=== PATIENT | female | born 1995 | race Caucasian/White ===

== ENCOUNTER 2017-09-28 03:46 | Emergency (ER) | payer BC, OTHER ==
[~2017-09-28 03:46] MED LIST: CLON0.5T PO; CYCL-36 PO; IBUP800 PO; MONT10TA2 PO; Z.0.BCPILL PO
--- NOTE | 2017-09-28 05:36 | PD ---
HPI Chief Complaint fall Date Seen: Sep 28, 2017 Time Seen: 05:31 Travel History International Travel<30 Days: No Contact w/Intl Traveler<30Days: No Known Affected Area: No History of Present Illness HPI pt. is a 22 y/o @25 3/7 weeks present s/p fall. pt. states was walking thru house in dark and tripped over the dog. pt. states she fell on her right buttock. pt. states she is sore on that side now. +FM , no lof/vb, no cramping. Weeks Gestation: 25 Para: 0 : 1 History Past Medical History Medical History: Denies Significant Hx Past Surgical History Surgical History: No Previous Surgery Family History Family History: Negative Social History Alcohol Use: No Tobacco Use: No Substance Abuse: No Allergies-Medications (Allergen,Severity, Reaction): Coded Allergies: levofloxacin (Unverified Allergy, Severe, DIZZINESS, 03/14/17) amoxicillin (Unverified Allergy, Mild, HIVES, 03/14/17) clavulanic acid (Unverified Allergy, Mild, HIVES, 03/14/17) cefprozil (Unverified Allergy, Unknown, 03/14/17) Home Meds Active Scripts Cyclobenzaprine Hcl (Flexeril) 10 Mg Tab, 10 MG PO TID Y for MUSCLE SPASM, #30 TAB Prov:Dory Puri 02/24/16 Ibuprofen (Motrin 800 Mg Tab) 800 Mg Tab, 800 MG PO Q8HR Y for PAIN SCALE 1 TO 10 for 14 Days, TAB Prov:Dory Puri 02/24/16 Reported Medications Miscellaneous ( Control Pills) Tab, 1 TAB PO DAILY, TAB 02/24/16 Montelukast Sodium (Singulair) 10 Mg Tab, 10 MG PO HS, TAB 06/23/15 Clonazepam (Clonazepam) 0.5 Mg Tab, 0.25 MG PO DAILY, TAB 06/23/15 Review of Systems Except as stated in HPI: all other systems reviewed are Neg Physical Exam Narrative GENERAL: Well-nourished, well-developed patient. SKIN: Warm and dry. HEAD: Normocephalic and atraumatic. EYES: No scleral icterus. No injection or drainage. ENT: No nasal drainage noted. Mucous membranes pink. Airway patent. NECK: Supple, trachea midline. No JVD. CARDIOVASCULAR: Regular rate and rhythm without murmurs, gallops, or rubs. RESPIRATORY: Breath sounds equal bilaterally. No accessory muscle use. ABDOMEN/GI: Abdomen soft, non-tender, bowel sounds present, no rebound, no guarding Gravid EXTREMITIES: No cyanosis or edema. BACK: Nontender without obvious deformity. right hip and buttock tenderness. NEUROLOGICAL: Awake and alert. Motor and sensory grossly within normal limits. Five out of 5 muscle strength in all muscle groups. Normal speech. FHT: +, reactive. Data Data Vital Signs Reviewed: Yes [facility] Medical Record Reviewed: Yes Plan pt. to be d/c to home. fall d/w pt. pt. given precautions for return. Pt. to see dr. duron as sched. all ? answered. Disposition: 01 DISCHARGE HOME Eduard Caballero Jr., MD Sep 28, 2017 05:36
--- NOTE | 2017-09-28 05:52 | PD ---
HPI Travel History International Travel<30 Days: No Contact w/Intl Traveler<30Days: No Known Affected Area: No History of Present Illness HPI pt. is a 22 y/o @25 3/7 weeks present s/p fall. pt. states was walking thru house in dark and tripped over the dog. pt. states she fell on her right buttock. pt. states she is sore on that side now. +FM , no lof/vb, no cramping. Allergies-Medications (Allergen,Severity, Reaction): Coded Allergies: levofloxacin (Unverified Allergy, Severe, DIZZINESS, 03/14/17) amoxicillin (Unverified Allergy, Mild, HIVES, 03/14/17) clavulanic acid (Unverified Allergy, Mild, HIVES, 03/14/17) cefprozil (Unverified Allergy, Unknown, 03/14/17) Home Meds Active Scripts Cyclobenzaprine Hcl (Flexeril) 10 Mg Tab, 10 MG PO TID Y for MUSCLE SPASM, #30 TAB Prov:Dory Puri 02/24/16 Ibuprofen (Motrin 800 Mg Tab) 800 Mg Tab, 800 MG PO Q8HR Y for PAIN SCALE 1 TO 10 for 14 Days, TAB Prov:Dory Puri 02/24/16 Reported Medications Miscellaneous ( Control Pills) Tab, 1 TAB PO DAILY, TAB 02/24/16 Montelukast Sodium (Singulair) 10 Mg Tab, 10 MG PO HS, TAB 06/23/15 Clonazepam (Clonazepam) 0.5 Mg Tab, 0.25 MG PO DAILY, TAB 06/23/15 Physical Exam Narrative GENERAL: Well-nourished, well-developed patient. SKIN: Warm and dry. HEAD: Normocephalic and atraumatic. EYES: No scleral icterus. No injection or drainage. ENT: No nasal drainage noted. Mucous membranes pink. Airway patent. NECK: Supple, trachea midline. No JVD. CARDIOVASCULAR: Regular rate and rhythm without murmurs, gallops, or rubs. RESPIRATORY: Breath sounds equal bilaterally. No accessory muscle use. BREASTS: Bilateral exam showed no masses , no retractions, no nipple discharge. ABDOMEN/GI: Abdomen soft, non-tender, bowel sounds present, no rebound, no guarding Gravid to [-] weeks size Fundal Height: [-] GENITOURINARY: External Genitalia: intact and normal in appearance BUS glands: [-] Cervix: [-] Dilatation: [-] Effacement: [-] Station: [-] Presentation: [-] Membranes: [intact or ruptured] Uterine Contractions: [-] FHT's: Category: [-] Baseline: [-] Reactive: [-] Variability: [-] Decels: [-] EXTREMITIES: No cyanosis or edema. BACK: Nontender without obvious deformity. No CVA tenderness. NEUROLOGICAL: Awake and alert. Motor and sensory grossly within normal limits. Five out of 5 muscle strength in all muscle groups. Normal speech. MDM Diagnosis Diagnosis: Primary Impression: Fall Additional Impression: 25 weeks gestation of Disposition: 01 DISCHARGE HOME Condition: Stable Patient Instructions: General Instructions, Movement (ED), Abdominal Pain in (ED) Additional Instructions: DRINK PLENTY OF WATER DURING THE DAY, RETURN IF LEAKING FLUID, VAGINAL BLEEDING , STRONG CONTRACTIONS AND DECREASE IN MOVEMENT. FOLLOW UP WITH OB DR IN AM AND KEEP ALL UPCOMING OB APPTS. Departure Forms: Tests/Procedures Eduard Caballero Jr., MD Sep 28, 2017 05:52
== END 2017-09-28 06:20 | disposition home or self-care (01) ==
LOC: HOBED 03:46
DX: O9A.212 Injury, poisoning and certain other consequences of external causes complicating pregnancy, second trimester (principal); W01.0XXA Fall on same level from slipping, tripping and stumbling without subsequent striking against object, initial encounter; Y93.01 Activity, walking, marching and hiking; Y92.009 Unspecified place in unspecified non-institutional (private) residence as the place of occurrence of the external cause; Z3A.25 25 weeks gestation of pregnancy
CPT/HCPCS: 99283

== ENCOUNTER 2017-12-21 14:52 | Emergency (ER) | payer BC ==
[2017-12-21] MEDS ORDERED: ONDANSETRON ODT 4 MG TAB PO PRN (15:30)
[2017-12-21] MEDS ORDERED: LACTATED RINGER'S 1000 ML INJ 1,000 ML IV SCH (16:00)
[2017-12-21] MEDS ORDERED: SODIUM CHLORID 0.9% 500 ML INJ 500 ML IV ONE (16:00)
[2017-12-21 16:10] LABS: AUTOMATED NEUTROPHIL # 9.6 TH/MM3 (1.8-7.7); BASOPHIL % 0.2 % (0.0-2.0); EOSINOPHIL % 0.3 % (0.0-4.0); HEMATOCRIT 37.7 % (35.0-46.0); HEMOGLOBIN 12.4 GM/DL (11.6-15.3); LYMPH % 11.5 % (9.0-44.0); LYMPHOCYTE # 1.3 TH/MM3 (1.0-4.8); MEAN CELL VOLUME 83.2 FL (80.0-100.0); MEAN CORPUSCULAR HEMOGLOBIN 27.4 PG (27.0-34.0); MEAN CORPUSCULAR HGB CONC 32.9 % (32.0-36.0); MEAN PLATELET VOLUME 9.7 FL (7.0-11.0); MONO % 5.6 % (0.0-8.0); MONOCYTE # 0.7 TH/MM3 (0-0.9); NEUT % 82.4 % (16.0-70.0); PLATELET COUNT 181 TH/MM3 (150-450); RED BLOOD COUNT 4.53 MIL/MM3 (4.00-5.30); RED CELL DISTRIBUTION WIDTH 15.9 % (11.6-17.2); WHITE BLOOD COUNT 11.7 TH/MM3 (4.0-11.0)
[2017-12-21 16:23] LABS: BICARBONATE 23.5 MEQ/L (21.0-32.0); CALCIUM 8.4 MG/DL (8.5-10.1); CREATININE 0.53 MG/DL (0.50-1.00)
[2017-12-21 16:31] LABS: BACTERIA, URINE RARE /hpf; BILIRUBIN, URINE NEG (NEG); BLOOD, URINE NEG (NEG); GLUCOSE,URINE NEG (NEG); HYALINE CAST, URINE 2 /lpf (RARE); KETONE, URINE NEG (NEG); MUCUS URINE FEW /lpf (OCC); NITRITE,URINE NEG (NEG); PH, URINE 7.5 (5.0-8.5); SQUAMOUS EPITHELIAL CELL URINE 2 /hpf (0-5); URINE COLOR YELLOW (YELLW/STRAW); URINE LEUKOCYTE ESTERASE NEG (NEG)
--- NOTE | 2017-12-21 17:20 | PD ---
HPI Chief Complaint nausea, malaise Date Seen: December 21, 2017 Time Seen: 16:55 Travel History International Travel<30 Days: No Contact w/Intl Traveler<30Days: No Known Affected Area: No History of Present Illness HPI pt. is a 22 y/o @ 37 4/[address] duron present w/ c/o nausea and malaise. pt. states had baby shower yesterday, and had multiple sick contacts. pt. states this am began having nausea and malaise and not able to florin po. pt. states no fever. +FM, no lof/vb, irreg ctxs. pt. states reg bm. Weeks Gestation: 37 Para: 0 : 1 History Past Medical History Medical History: Denies Significant Hx Obstetric History Obstetric History Past Surgical History Surgical History: No Previous Surgery Family History Family History: Negative Social History Alcohol Use: No Tobacco Use: No Substance Abuse: No Allergies-Medications (Allergen,Severity, Reaction): Coded Allergies: levofloxacin (Unverified Allergy, Severe, DIZZINESS, 03/14/17) amoxicillin (Unverified Allergy, Mild, HIVES, 03/14/17) clavulanic acid (Unverified Allergy, Mild, HIVES, 03/14/17) cefprozil (Unverified Allergy, Unknown, 03/14/17) Home Meds Active Scripts Cyclobenzaprine Hcl (Flexeril) 10 Mg Tab, 10 MG PO TID Y for MUSCLE SPASM, #30 TAB Prov:Dory Puri 02/24/16 Ibuprofen (Motrin 800 Mg Tab) 800 Mg Tab, 800 MG PO Q8HR Y for PAIN SCALE 1 TO 10 for 14 Days, TAB Prov:Dory Puri 02/24/16 Reported Medications Miscellaneous ( Control Pills) Tab, 1 TAB PO DAILY, TAB 02/24/16 Montelukast Sodium (Singulair) 10 Mg Tab, 10 MG PO HS, TAB 06/23/15 Clonazepam (Clonazepam) 0.5 Mg Tab, 0.25 MG PO DAILY, TAB 06/23/15 Review of Systems Except as stated in HPI: all other systems reviewed are Neg Physical Exam Narrative GENERAL: Well-nourished, well-developed patient. SKIN: Warm and dry. HEAD: Normocephalic and atraumatic. EYES: No scleral icterus. No injection or drainage. ENT: No nasal drainage noted. Mucous membranes pink. Airway patent. NECK: Supple, trachea midline. No JVD. CARDIOVASCULAR: Regular rate and rhythm without murmurs, gallops, or rubs. RESPIRATORY: Breath sounds equal bilaterally. No accessory muscle use. ABDOMEN/GI: Abdomen soft, non-tender, bowel sounds present, no rebound, no guarding Gravid GENITOURINARY: External Genitalia: intact and normal in appearance Dilatation: 1 Effacement: long Station: high Uterine Contractions: irreg FHT's: Category: 1 Reactive: mod Variability: + EXTREMITIES: No cyanosis or edema. BACK: Nontender without obvious deformity. No CVA tenderness. NEUROLOGICAL: Awake and alert. Motor and sensory grossly within normal limits. Five out of 5 muscle strength in all muscle groups. Normal speech. Data Data Vital Signs Reviewed: Yes Orders Orders Urinalysis - C+S If Indicated (12/21/17 15:24) Complete Blood Count With Diff (12/21/17 15:24) Basic Metabolic Panel (Bmp) (12/21/17 15:24) Ondansetron Odt (Zofran Odt) (12/21/17 15:30) Lactated Ringer's 1000 Ml Inj (Lr 1000 M (12/21/17 16:00) Sodium Chlorid 0.9% 500 Ml Inj (Ns 500 M (12/21/17 16:00) Commercial Glazier Clear For Discharge (12/21/17 ) Labs Laboratory Tests Test 12/21/17 15:35 White Blood Count 11.7 Red Blood Count 4.53 Hemoglobin 12.4 Hematocrit 37.7 Mean Corpuscular Volume 83.2 Mean Corpuscular Hemoglobin 27.4 Mean Corpuscular Hemoglobin Concent 32.9 Red Cell Distribution Width 15.9 Platelet Count 181 Mean Platelet Volume 9.7 Neutrophils (%) (Auto) 82.4 Lymphocytes (%) (Auto) 11.5 Monocytes (%) (Auto) 5.6 Eosinophils (%) (Auto) 0.3 Basophils (%) (Auto) 0.2 Neutrophils # (Auto) 9.6 Lymphocytes # (Auto) 1.3 Monocytes # (Auto) 0.7 Eosinophils # (Auto) 0.0 Basophils # (Auto) 0.0 CBC Comment DIFF FINAL Differential Comment Urine Color YELLOW Urine Turbidity HAZY Urine pH 7.5 Urine Specific Kerrick 1.012 Urine Protein NEG Urine Glucose (UA) NEG Urine Ketones NEG Urine Occult Blood NEG Urine Nitrite NEG Urine Bilirubin NEG Urine Urobilinogen LESS THAN 2.0 Urine Leukocyte Esterase NEG Urine WBC 2 Urine Squamous Epithelial Cells 2 Urine Bacteria RARE Urine Hyaline Casts 2 Urine Mucus FEW Microscopic Urinalysis Comment CULT NOT INDICATED Blood Urea Nitrogen 7 Creatinine 0.53 Random Glucose 76 Calcium Level 8.4 Sodium Level 140 Potassium Level 3.6 Chloride Level 105 Carbon Dioxide Level 23.5 Anion Gap 12 Estimat Glomerular Filtration Rate 142 MDM Medical Record Reviewed: Yes Plan pt. to be d/c to home. pt. have ivf and zofran w/ resolution. pt. w/ most prob gastritis. condition d/w pt. pt. to f/u as sched. pt. given precautions for return. Diagnosis Diagnosis: Primary Impression: Gastritis Additional Impression: 37 weeks gestation of Disposition: DISCHARGE HOME Eduard Caballero Jr., MD December 21, 2017 17:20
== END 2017-12-21 17:36 | disposition home or self-care (01) ==
LOC: HOBED 14:52
DX: O99.613 Diseases of the digestive system complicating pregnancy, third trimester (principal); K29.70 Gastritis, unspecified, without bleeding; R53.81 Other malaise; Z3A.37 37 weeks gestation of pregnancy; Z88.0 Allergy status to penicillin
CPT/HCPCS: 59025; 80048; 81001; 85025; 96361; 96374; 99284; J7040; J7120

== ENCOUNTER 2017-12-22 20:09 | Emergency (ER) | payer BC ==
[~2017-12-22] VITALS: Ht 157.5 cm; Wt 81.6 kg
[~2017-12-22 20:09] MED LIST changes: -MEPERIDINE HCL 50 MG/ML VIAL IM ONE; -PROMETHAZINE INJ 25 MG/ML VIAL IM ONE
--- NOTE | 2017-12-22 20:20 | PD ---
History of Present Illness History of Present Illness OB ED Note (Detail) Patient Name: Alana Alvares Unit Number: [id number] Date of : 1995 Patient Status: Registered Emergency Room Attending Doctor: Martínez Zhang II, MD HPI HPI Chief Complaint Constipation, pain, problems eating Date Seen: December 22, 2017 Time Seen: 17:00 Travel History International Travel<30 Days: No Contact w/Intl Traveler<30Days: No Known Affected Area: No History of Present Illness HPI Patient is 22-year-old white female [address] Pelayo who presents with chronic constipation and pain. Patient tried some enemas over-the -counter but has no results she has not tried any oral laxatives. She also complains about heartburn but is tried only Protonix given to her as a prescription but is tried no other antacids like Mylanta or Maalox. heart tones are reactive and she is estella on a regular basis Weeks Gestation: 37 Para: 0 : 1 History (Limited) History Social History Alcohol Use: No Tobacco Use: No Substance Abuse: No Allergies-Medications Allergies-Medications (Allergen,Severity, Reaction): Coded Allergies: levofloxacin (Unverified Allergy, Severe, DIZZINESS, 03/14/17) amoxicillin (Unverified Allergy, Mild, HIVES, 03/14/17) clavulanic acid (Unverified Allergy, Mild, HIVES, 03/14/17) cefprozil (Unverified Allergy, Unknown, 03/14/17) Home Meds Active Scripts Cyclobenzaprine Hcl (Flexeril) 10 Mg Tab, 10 MG PO TID Y for MUSCLE SPASM, #30 TAB Prov:Dory Puri 02/24/16 Ibuprofen (Motrin 800 Mg Tab) 800 Mg Tab, 800 MG PO Q8HR Y for PAIN SCALE 1 TO 10 for 14 Days, TAB Prov:Dory Puri 02/24/16 Reported Medications Miscellaneous ( Control Pills) Tab, 1 TAB PO DAILY, TAB 02/24/16 Montelukast Sodium (Singulair) 10 Mg Tab, 10 MG PO HS, TAB 06/23/15 Clonazepam (Clonazepam) 0.5 Mg Tab, 0.25 MG PO DAILY, TAB 06/23/15 ROS Review of Systems General / Constitutional: No: Fever, Weight Gain, Chills, Other Eyes: No: Diploplia, Blurred Vision, Visual changes, Pain, Photophobia HENT: No: Headaches, Vertigo, Lightheadedness Cardiovascular: No: Irregular Rhythm, Chest Pain or Discomfort, Palpitations, Tachycardia, Syncope, Varicosities, Edema, Cyanosis Respiratory: No: Cough, Short of Breath, Other Gastrointestinal: Constipation, No: Nausea, Vomiting, Diarrhea Genitourinary: No: Decreased Urinary Output, Oliguria Musculoskeletal: No: Limited ROM, Weakness, Cramping, Edema, Pain Skin: No Rash, No Itching, No Dryness, No Lumps, No Change in Pigmentation, No Change in Nails, No Alopecia, No Lesions Neurologic: No: Weakness, Dizziness, Syncope, Focal Abnormalities, Coordination Problem, Headache, Slurred Speech, Seizures Psychiatric: No: Depression, Suicidal Ideations, Homicidal Ideation Endocrine: No: Heat Intolerance, Cold Intolerance, Polydipsia, Polyuria, Other Physical Exam Physical Exam Narrative GENERAL: Well-nourished, well-developed patient. SKIN: Warm and dry. HEAD: Normocephalic and atraumatic. EYES: No scleral icterus. No injection or drainage. ENT: No nasal drainage noted. Mucous membranes pink. Airway patent. NECK: Supple, trachea midline. No JVD. CARDIOVASCULAR: Regular rate and rhythm without murmurs, gallops, or rubs. RESPIRATORY: Breath sounds equal bilaterally. No accessory muscle use. BREASTS: Bilateral exam showed no masses , no retractions, no nipple discharge. ABDOMEN/GI: Abdomen soft, non-tender, bowel sounds present, no rebound, no guarding Gravid to [-37] weeks size Fundal Height: [37-] GENITOURINARY: External Genitalia: intact and normal in appearance BUS glands: [-] Cervix: [post-] Dilatation: [0-] Effacement: [0-] Station: [-3] Presentation: [-vtx] Membranes: [intact ] Uterine Contractions: [-0] FHT's: Category: [-1] Baseline: [-133] Reactive: [-R] Variability: [mod-] Decels: [0-] EXTREMITIES: No cyanosis or edema. BACK: Nontender without obvious deformity. No CVA tenderness. NEUROLOGICAL: Awake and alert. Motor and sensory grossly within normal limits. Five out of 5 muscle strength in all muscle groups. Normal speech. Data Data [facility] Interpretation(s) Patient is 22-year-old white female 37 weeks with chronic constipation, heartburn, pains. She is having no bleeding leakage or contractions, NST is reactive, cervix is closed and posterior Plan Patient advised she can take laxatives such as milk of magnesia and MiraLAX and even magnesium citrate which are [id number] to try and move her bowels. For heartburn she certainly can try the liquid antacids Maalox and Mylanta as well as continue her Protonix. She is to follow-up with Dr. Pelayo for further symptomatology Diagnosis Diagnosis: Primary Impression: Constipation during Additional Impressions: Heartburn during in third trimester 37 or more weeks gestation of Disposition: 01 DISCHARGE HOME Condition: Stable Martínez Zhang II, MD December 22, 2017 17:20 Martínez Zhang II, MD December 22, 2017 20:20
[2017-12-22] MEDS ORDERED: MEPERIDINE HCL 50 MG/ML VIAL IM ONE (20:30)
[2017-12-22] MEDS ORDERED: PROMETHAZINE INJ 25 MG/ML VIAL IM ONE (20:30)
--- NOTE | 2017-12-22 21:35 | PD ---
HPI Travel History International Travel<30 Days: No Contact w/Intl Traveler<30Days: No Known Affected Area: No Allergies-Medications (Allergen,Severity, Reaction): Coded Allergies: levofloxacin (Unverified Allergy, Severe, DIZZINESS, 03/14/17) amoxicillin (Unverified Allergy, Mild, HIVES, 03/14/17) clavulanic acid (Unverified Allergy, Mild, HIVES, 03/14/17) cefprozil (Unverified Allergy, Unknown, 03/14/17) Home Meds Active Scripts Cyclobenzaprine Hcl (Flexeril) 10 Mg Tab, 10 MG PO TID Y for MUSCLE SPASM, #30 TAB Prov:Dory Puri 02/24/16 Ibuprofen (Motrin 800 Mg Tab) 800 Mg Tab, 800 MG PO Q8HR Y for PAIN SCALE 1 TO 10 for 14 Days, TAB Prov:Dory Puri 02/24/16 Reported Medications Miscellaneous ( Control Pills) Tab, 1 TAB PO DAILY, TAB 02/24/16 Montelukast Sodium (Singulair) 10 Mg Tab, 10 MG PO HS, TAB 06/23/15 Clonazepam (Clonazepam) 0.5 Mg Tab, 0.25 MG PO DAILY, TAB 06/23/15 Physical Exam Narrative GENERAL: Well-nourished, well-developed patient. SKIN: Warm and dry. HEAD: Normocephalic and atraumatic. EYES: No scleral icterus. No injection or drainage. ENT: No nasal drainage noted. Mucous membranes pink. Airway patent. NECK: Supple, trachea midline. No JVD. CARDIOVASCULAR: Regular rate and rhythm without murmurs, gallops, or rubs. RESPIRATORY: Breath sounds equal bilaterally. No accessory muscle use. BREASTS: Bilateral exam showed no masses , no retractions, no nipple discharge. ABDOMEN/GI: Abdomen soft, non-tender, bowel sounds present, no rebound, no guarding Gravid to [-] weeks size Fundal Height: [-] GENITOURINARY: External Genitalia: intact and normal in appearance BUS glands: [-] Cervix: [-] Dilatation: [-] Effacement: [-] Station: [-] Presentation: [-] Membranes: [intact or ruptured] Uterine Contractions: [-] FHT's: Category: [-] Baseline: [-] Reactive: [-] Variability: [-] Decels: [-] EXTREMITIES: No cyanosis or edema. BACK: Nontender without obvious deformity. No CVA tenderness. NEUROLOGICAL: Awake and alert. Motor and sensory grossly within normal limits. Five out of 5 muscle strength in all muscle groups. Normal speech. Data Data Orders Orders Meperidine Inj (Demerol Inj) (12/22/17 20:30) Promethazine Inj (Phenergan Inj) (12/22/17 20:30) Attending Discharge Order (12/22/17 ) MDM Diagnosis Diagnosis: Primary Impression: Conrado Morocho contractions Disposition: DISCHARGE HOME Condition: Stable Patient Instructions: General Instructions, Having Your Baby: The Labor Process (GEN), Movement (ED), Abdominal Pain in (ED) Additional Instructions: Return to [facility] for decreased movement, gush of fluid, vaginal bleeding, contractions that are every 4-5 minutes apart. May take milk of magnesia or magnesium citrate for constipation. Drink 8-10 large glasses of water per day. Departure Forms: Tests/Procedures Martínez Zhang II, MD December 22, 2017 21:35
== END 2017-12-22 21:46 | disposition home or self-care (01) ==
LOC: HOBED 20:09
DX: O47.1 False labor at or after 37 completed weeks of gestation (principal); Z3A.37 37 weeks gestation of pregnancy
CPT/HCPCS: 59025; 99284; J2175; J2550

== ENCOUNTER → 2017-12-22 | Emergency (ER) | payer BC ==
[~2017-12-22] VITALS: Ht 157.5 cm; Wt 81.6 kg
[~2017-12-22] MED LIST changes: +MEPERIDINE HCL 50 MG/ML VIAL IM ONE; +PROMETHAZINE INJ 25 MG/ML VIAL IM ONE
--- NOTE | 2017-12-22 17:20 | PD ---
HPI Chief Complaint Constipation, pain, problems eating Date Seen: December 22, 2017 Time Seen: 17:00 Travel History International Travel<30 Days: No Contact w/Intl Traveler<30Days: No Known Affected Area: No History of Present Illness HPI Patient is 22-year-old white female [address] Pelayo who presents with chronic constipation. Patient tried some enemas [id number] but has no results she has not tried any oral laxatives. She also complains about heartburn but is tried only Protonix given to her as a prescription but is tried no other antacids like Mylanta or Maalox. heart tones are reactive and she is not estella on a regular basis Weeks Gestation: 37 Para: 0 : 1 History Social History Alcohol Use: No Tobacco Use: No Substance Abuse: No Allergies-Medications (Allergen,Severity, Reaction): Coded Allergies: levofloxacin (Unverified Allergy, Severe, DIZZINESS, 03/14/17) amoxicillin (Unverified Allergy, Mild, HIVES, 03/14/17) clavulanic acid (Unverified Allergy, Mild, HIVES, 03/14/17) cefprozil (Unverified Allergy, Unknown, 03/14/17) Home Meds Active Scripts Cyclobenzaprine Hcl (Flexeril) 10 Mg Tab, 10 MG PO TID Y for MUSCLE SPASM, #30 TAB Prov:Dory Puri 02/24/16 Ibuprofen (Motrin 800 Mg Tab) 800 Mg Tab, 800 MG PO Q8HR Y for PAIN SCALE 1 TO 10 for 14 Days, TAB Prov:Dory Puri 02/24/16 Reported Medications Miscellaneous ( Control Pills) Tab, 1 TAB PO DAILY, TAB 02/24/16 Montelukast Sodium (Singulair) 10 Mg Tab, 10 MG PO HS, TAB 06/23/15 Clonazepam (Clonazepam) 0.5 Mg Tab, 0.25 MG PO DAILY, TAB 06/23/15 Review of Systems General / Constitutional: No: Fever, Weight Gain, Chills, Other Eyes: No: Diploplia, Blurred Vision, Visual changes, Pain, Photophobia HENT: No: Headaches, Vertigo, Lightheadedness Cardiovascular: No: Irregular Rhythm, Chest Pain or Discomfort, Palpitations, Tachycardia, Syncope, Varicosities, Edema, Cyanosis Respiratory: No: Cough, Short of Breath, Other Gastrointestinal: Constipation, No: Nausea, Vomiting, Diarrhea Genitourinary: No: Decreased Urinary Output, Oliguria Musculoskeletal: No: Limited ROM, Weakness, Cramping, Edema, Pain Skin: No Rash, No Itching, No Dryness, No Lumps, No Change in Pigmentation, No Change in Nails, No Alopecia, No Lesions Neurologic: No: Weakness, Dizziness, Syncope, Focal Abnormalities, Coordination Problem, Headache, Slurred Speech, Seizures Psychiatric: No: Depression, Suicidal Ideations, Homicidal Ideation Endocrine: No: Heat Intolerance, Cold Intolerance, Polydipsia, Polyuria, Other Physical Exam Narrative GENERAL: Well-nourished, well-developed patient. SKIN: Warm and dry. HEAD: Normocephalic and atraumatic. EYES: No scleral icterus. No injection or drainage. ENT: No nasal drainage noted. Mucous membranes pink. Airway patent. NECK: Supple, trachea midline. No JVD. CARDIOVASCULAR: Regular rate and rhythm without murmurs, gallops, or rubs. RESPIRATORY: Breath sounds equal bilaterally. No accessory muscle use. BREASTS: Bilateral exam showed no masses , no retractions, no nipple discharge. ABDOMEN/GI: Abdomen soft, non-tender, bowel sounds present, no rebound, no guarding Gravid to [-37] weeks size Fundal Height: [37-] GENITOURINARY: External Genitalia: intact and normal in appearance BUS glands: [-] Cervix: [post-] Dilatation: [0-] Effacement: [0-] Station: [-3] Presentation: [-vtx] Membranes: [intact ] Uterine Contractions: [-0] FHT's: Category: [-1] Baseline: [-133] Reactive: [-R] Variability: [mod-] Decels: [0-] EXTREMITIES: No cyanosis or edema. BACK: Nontender without obvious deformity. No CVA tenderness. NEUROLOGICAL: Awake and alert. Motor and sensory grossly within normal limits. Five out of 5 muscle strength in all muscle groups. Normal speech. MDM Interpretation(s) Patient is 22-year-old white female 37 weeks with chronic constipation, heartburn, pains. She is having no bleeding leakage or contractions, NST is reactive, cervix is closed and posterior Plan Patient advised she can take laxatives such as milk of magnesia and MiraLAX and even magnesium citrate which are [id number] to try and move her bowels. For heartburn she certainly can try the liquid antacids Maalox and Mylanta as well as continue her Protonix. She is to follow-up with Dr. Pelayo for further symptomatology Diagnosis Diagnosis: Primary Impression: Constipation during Additional Impressions: Heartburn during in third trimester 37 or more weeks gestation of Disposition: 01 DISCHARGE HOME Condition: Stable Martínez Zhang II, MD December 22, 2017 17:20
== END | disposition home or self-care (01) ==
LOC: HOBED 16:32
DX: O99.613 Diseases of the digestive system complicating pregnancy, third trimester (principal); K59.09 Other constipation; Z3A.37 37 weeks gestation of pregnancy
CPT/HCPCS: 59025

== ENCOUNTER 2018-01-07 21:14 | Inpatient (IN) | payer BC ==
[~2018-01-07] VITALS: Ht 157.5 cm; Wt 82.0 kg
[2018-01-07] VITALS (13 sets, daily range): BP systolic 100–151; BP diastolic 52–116; PULSE 94–115; RESP 18–20; TEMP 97.7
[2018-01-07] MEDS ORDERED: LACTATED RINGER'S 1000 ML INJ 1,000 ML IV SCH (21:37)
[2018-01-07] MEDS ORDERED: LACTATED RINGER'S 1000 ML INJ 1,000 ML IV PRN (21:37)
--- NOTE | 2018-01-07 21:37 | HHI.HP ---
HPI Chief Complaint Contraction pain Date Seen: Jan 07, 2018 Time Seen: 21:34 Travel History International Travel<30 Days: No Contact w/Intl Traveler<30Days: No Known Affected Area: No History of Present Illness HPI Patient is 22-year-old white female at [address] Pelayo for care presents complaining of contraction pain, no bleeding, no leakage NST is reactive and she is estella regularly Weeks Gestation: 40 Para: 0 : 1 History Social History Alcohol Use: No Tobacco Use: No Substance Abuse: No Allergies-Medications (Allergen,Severity, Reaction): Coded Allergies: levofloxacin (Unverified Allergy, Severe, DIZZINESS, 03/14/17) amoxicillin (Unverified Allergy, Mild, HIVES, 03/14/17) clavulanic acid (Unverified Allergy, Mild, HIVES, 03/14/17) cefprozil (Unverified Allergy, Unknown, 03/14/17) Home Meds Active Scripts Cyclobenzaprine Hcl (Flexeril) 10 Mg Tab, 10 MG PO TID Y for MUSCLE SPASM, #30 TAB Prov:Dory Puri 02/24/16 Ibuprofen (Motrin 800 Mg Tab) 800 Mg Tab, 800 MG PO Q8HR Y for PAIN SCALE 1 TO 10 for 14 Days, TAB Prov:Dory Puri 02/24/16 Reported Medications Miscellaneous ( Control Pills) Tab, 1 TAB PO DAILY, TAB 02/24/16 Montelukast Sodium (Singulair) 10 Mg Tab, 10 MG PO HS, TAB 06/23/15 Clonazepam (Clonazepam) 0.5 Mg Tab, 0.25 MG PO DAILY, TAB 06/23/15 Review of Systems General / Constitutional: No: Fever, Weight Gain, Chills, Other Eyes: No: Diploplia, Blurred Vision, Visual changes, Pain, Photophobia HENT: No: Headaches, Vertigo, Lightheadedness Cardiovascular: No: Irregular Rhythm, Chest Pain or Discomfort, Palpitations, Tachycardia, Syncope, Varicosities, Edema, Cyanosis Respiratory: No: Cough, Short of Breath, Other Gastrointestinal: Abdominal Pain, No: Nausea, Vomiting, Diarrhea Genitourinary: No: Decreased Urinary Output, Oliguria Musculoskeletal: No: Limited ROM, Weakness, Cramping, Edema, Pain Skin: No Rash, No Itching, No Dryness, No Lumps, No Change in Pigmentation, No Change in Nails, No Alopecia, No Lesions Neurologic: No: Weakness, Dizziness, Syncope, Focal Abnormalities, Coordination Problem, Headache, Slurred Speech, Seizures Psychiatric: No: Depression, Suicidal Ideations, Homicidal Ideation Endocrine: No: Heat Intolerance, Cold Intolerance, Polydipsia, Polyuria, Other Physical Exam Narrative GENERAL: Well-nourished, well-developed patient. SKIN: Warm and dry. HEAD: Normocephalic and atraumatic. EYES: No scleral icterus. No injection or drainage. ENT: No nasal drainage noted. Mucous membranes pink. Airway patent. NECK: Supple, trachea midline. No JVD. CARDIOVASCULAR: Regular rate and rhythm without murmurs, gallops, or rubs. RESPIRATORY: Breath sounds equal bilaterally. No accessory muscle use. BREASTS: Bilateral exam showed no masses , no retractions, no nipple discharge. ABDOMEN/GI: Abdomen soft, non-tender, bowel sounds present, no rebound, no guarding Gravid to [-40] weeks size Fundal Height: [40-] GENITOURINARY: External Genitalia: intact and normal in appearance BUS glands: [-] Cervix: [post-] Dilatation: [4-] Effacement: [80-] Station: [-1] Presentation: [vtx-] Membranes: [intact ] Uterine Contractions: [-reg] FHT's: Category: [1-] Baseline: [-133] Reactive: [-R] Variability: [-mod] Decels: [0-] EXTREMITIES: No cyanosis or edema. BACK: Nontender without obvious deformity. No CVA tenderness. NEUROLOGICAL: Awake and alert. Motor and sensory grossly within normal limits. Five out of 5 muscle strength in all muscle groups. Normal speech. Caprini VTE Risk Assessment Caprini VTE Risk Assessment: No/Low Risk (score <= 1) Caprini Risk Assessment Model Point Value = 1 Point Value = 2 Point Value = 3 Point Value = 5 Age 41-60 Minor surgery BMI > 25 kg/m2 Swollen legs Varicose veins or History of unexplained or recurrent spontaneous Oral contraceptives or hormone replacement Sepsis (< 1 month) Serious lung disease, including pneumonia (< 1 month) Abnormal pulmonary function Acute myocardial infarction Congestive heart failure (< 1 month) History of inflammatory bowel disease Medical patient at bed rest Age 61-74 Arthroscopic surgery Major open surgery (> 45 min) Laparoscopic surgery (> 45 min) Malignancy Confined to bed (> 72 hours) Immobilizing plaster cast Central venous access Age >= 75 History of VTE Family history of VTE Factor V Leiden Prothrombin [id number] Lupus anticoagulant Anticardiolipin antibodies Elevated serum homocysteine Heparin-induced thrombocytopenia Other congenital or acquired thrombophilia Stroke (< 1 month) Elective arthroplasty Hip, pelvis, or leg fracture Acute spinal cord injury (< 1 month) Prophylaxis Regimen Total Risk Factor Score Risk Level Prophylaxis Regimen 0-1 Low Early ambulation 2 Moderate Order ONE of the following: *Sequential Compression Device (SCD) *Heparin 5000 units SQ BID 3-4 Higher Order ONE of the following medications: *Heparin 5000 units SQ TID *Enoxaparin/Lovenox 40 mg SQ daily (WT < 150 kg, CrCl > 30 mL/min) *Enoxaparin/Lovenox 30 mg SQ daily (WT < 150 kg, CrCl > 10-29 mL/min) *Enoxaparin/Lovenox 30 mg SQ BID (WT < 150 kg, CrCl > 30 mL/min) AND/OR *Sequential Compression Device (SCD) 5 or more Highest Order ONE of the following medications: *Heparin 5000 units SQ TID (Preferred with Epidurals) *Enoxaparin/Lovenox 40 mg SQ daily (WT < 150 kg, CrCl > 30 mL/min) *Enoxaparin/Lovenox 30 mg SQ daily (WT < 150 kg, CrCl > 10-29 mL/min) *Enoxaparin/Lovenox 30 mg SQ BID (WT < 150 kg, CrCl > 30 mL/min) AND *Sequential Compression Device (SCD) Data Data Group B Strep: Negative Assessment/Plan Assessment and Plan Impression--40 week intrauterine in active labor primiparous Plan -admit to labor and delivery, manage and augment labor appropriately, anticipate vaginal delivery, notify Martínez Estrada II, MD Jan 07, 2018 21:37
[2018-01-07] MEDS ORDERED: LIDOCAINE HCL 1% 50 ML VIAL I-DERMAL PRN (21:45)
[2018-01-07] MEDS ORDERED: MINERAL OIL 10 ML VIAL TOPICAL PRN (21:45)
[2018-01-07] MEDS ORDERED: LIDOCAINE HCL 1% 50 ML VIAL INFIL PRN (21:45)
[2018-01-07] MEDS ORDERED: SODIUM CHLORID 0.9% 500 ML INJ 500 ML IV PRN (21:45)
[2018-01-07] MEDS ORDERED: CITRIC ACID-SODIUM CITRATE LIQ 30 ML UDC PO SCH (21:45)
[2018-01-07] MEDS ORDERED: LIDOCAINE HCL 1% PF 30 ML VIAL ONE (21:56)
[2018-01-07] MEDS ORDERED: SODIUM CHLOR 0.9% 1000 ML INJ 1,000 ML IV PRN (21:57)
[2018-01-07] MEDS ORDERED: OXYTOCIN 30 UNITS-500ML PREMIX 500 ML IV ONE (22:00)
[2018-01-07] MEDS ORDERED: fentaNYL 2MCG-BUPIV 0.125% INJ 150 ML EPIDURAL ONE (22:09)
[2018-01-07] MEDS ORDERED: ePHEDrine/NS 25 MG/5 ML SYRINGE ONE (22:09)
[2018-01-07 22:14] LABS: AUTOMATED NEUTROPHIL # 8.8 TH/MM3 (1.8-7.7); BASOPHIL # 0.1 TH/MM3 (0-0.2); BASOPHIL % 0.9 % (0.0-2.0); EOSINOPHIL % 0.3 % (0.0-4.0); HEMATOCRIT 38.8 % (35.0-46.0); HEMOGLOBIN 13.3 GM/DL (11.6-15.3); LYMPH % 19.3 % (9.0-44.0); LYMPHOCYTE # 2.3 TH/MM3 (1.0-4.8); MEAN CELL VOLUME 81.5 FL (80.0-100.0); MEAN CORPUSCULAR HEMOGLOBIN 27.9 PG (27.0-34.0); MEAN CORPUSCULAR HGB CONC 34.3 % (32.0-36.0); MONO % 7.1 % (0.0-8.0); MONOCYTE # 0.9 TH/MM3 (0-0.9); NEUT % 72.4 % (16.0-70.0); PLATELET COUNT 172 TH/MM3 (150-450); RED BLOOD COUNT 4.75 MIL/MM3 (4.00-5.30); RED CELL DISTRIBUTION WIDTH 15.5 % (11.6-17.2); WHITE BLOOD COUNT 12.1 TH/MM3 (4.0-11.0)
[2018-01-07 22:23] LABS: AMORPHOUS SEDIMENT, URINE RARE; BILIRUBIN, URINE NEG (NEG); BLOOD, URINE NEG (NEG); GLUCOSE,URINE NEG (NEG); KETONE, URINE 10 mg/dL (NEG); MUCUS URINE FEW /lpf (OCC); NITRITE,URINE NEG (NEG); SQUAMOUS EPITHELIAL CELL URINE 1 /hpf (0-5); URINE COLOR YELLOW (YELLW/STRAW); URINE LEUKOCYTE ESTERASE NEG (NEG)
[2018-01-07 22:55] LABS: BANDS 11 % (0-6); LYMPHOCYTES 11 % (9-44); METAMYELOCYTES 1 % (0-1); MONOCYTES 11 % (0-8); MYELOCYTES 2 % (0-0); NEUTROPHIL # MANUAL DIFF 9.4 TH/MM3 (1.8-7.7); POLYS (SEG NEUTROPHILS) 64 % (16-70); TOXIC GRANULATION 1+ (NORMAL)
[2018-01-07] MEDS ORDERED: fentaNYL 2MCG-BUPIV 0.125% 150 ML EPIDURAL PRN (23:45)
[2018-01-07] MEDS ORDERED: NO SYSTEM NARCOTICS PRN (23:45)
[2018-01-07] MEDS ORDERED: DO NOT ADMINISTER ANTICOAGULANTS PRN (23:45)
[2018-01-07] MEDS ORDERED: ePHEDrine/NS 25 MG/5 ML SYRINGE IV PUSH PRN (23:45)
[2018-01-08] VITALS (61 sets, daily range): BP systolic 92–128; BP diastolic 43–92; PULSE 62–124; RESP 16–20; TEMP 97.6–98.6; O2SAT 99
[2018-01-08] MEDS ORDERED: PROT40TA PO (01:13)
[2018-01-08] MEDS ORDERED: VALT500T PO (01:13)
[2018-01-08] MEDS ORDERED: PREN1TAB30 (01:13)
--- NOTE | 2018-01-08 06:49 | PD.LABORPN ---
Subjective Subjective comfortable with epidural using peanut ball Objective Objective baby has rotated from OP to OA 9/90%/-1 not well applied EFW 7 1/2 pounds pelvis clinically adequate strip category one Weeks Gestation: 40 Gest Age Assessed Date: Jan 08, 2018 Gest Age Assessed Time: 06:48 Pt started active labor?: Yes Active labor start date: Jan 07, 2018 Medical induction of labor?: No Artificial rupture of membrane: Yes Artificial ROM date: Jan 08, 2018 Artifical ROM time: 02:00 Assessment/Plan Assessment and Plan needs some contractions will augment anticipate Denice Burnett MD Jan 08, 2018 06:49
[2018-01-08] MEDS ORDERED: OXYTOCIN 30 UNITS-500ML PREMIX 500 ML IV PRN (08:30)
[2018-01-08] MEDS ORDERED: MORPHINE SULFATE 4 MG/ML INJ ONE (10:41)
--- NOTE | 2018-01-08 10:41 | PD.OB.DELI ---
Weeks gestation: 40 Gest age assessed date: Jan 08, 2018 Gest age assessed time: 06:48 Pt started active labor?: Yes Active labor start date: Jan 07, 2018 Medical induction of labor?: No Artificial rupture of membrane: Yes Artificial ROM date: Jan 08, 2018 Artifical ROM time: 02:00 Anesthesia: Epidural Episiotomy: None Vaginal Delivery: Normal Presentation: Occiput anterior Nuchal Cord: None Delayed cord clamping (45 sec): Yes Infant: Female Delivery date: Jan 08, 2018 Delivery time: 10:26 One Minute : 9 Five Minute : 9 Weight: 8/5 Placenta: Spontaneous delivery, Intact, 3 vessel cord Laceration: No lacerations, 1 deg Repair: Vicryl running Estimated blood loss: 300 Additional Information nice delivery Small bilateral labial lacerations repaired with 5-0 vicryl. Placenta was normal...cord exploded blood!! Matty Pelayo MD Jan 08, 2018 10:41
[2018-01-08] MEDS ORDERED: ALUMINUM/MAGNESIUM/SIMETH 30 ML CUP PO PRN (10:45)
[2018-01-08] MEDS ORDERED: MORPHINE SULFATE 4 MG/ML INJ IV PUSH ONE (10:45)
[2018-01-08] MEDS ORDERED: OXYTOCIN 30 UNITS-500ML PREMIX 500 ML IV SCH (10:45)
[2018-01-08] MEDS ORDERED: WITCH HAZEL 50%/GLYCERIN 12.5% 40 PAD JAR TOPICAL PRN (10:45)
[2018-01-08] MEDS ORDERED: ONDANSETRON ODT 4 MG TAB PO PRN (10:45)
[2018-01-08] MEDS ORDERED: SODIUM CHLORIDE 0.9% FLUSH 10 ML FLUSH IV FLUSH PRN (10:45)
[2018-01-08] MEDS ORDERED: ACETAMINOPHEN 325 MG TAB PO PRN (10:45)
[2018-01-08] MEDS ORDERED: ZOLPIDEM TARTRATE 5 MG TAB PO PRN (10:45)
[2018-01-08] MEDS ORDERED: OXYTOCIN 30 UNITS-500ML PREMIX 500 ML IV ONE (10:45)
[2018-01-08] MEDS ORDERED: BENZOCAINE 20% TOPICAL SPRAY 60 ML CAN TOPICAL PRN (10:45)
[2018-01-08] MEDS ORDERED: DIPHTH/TETANUS/ACEL PERTUSSIS (BOOSTER) 0.5 ML VIAL/PFS IM ONE (16:00)
[2018-01-08] MEDS ORDERED: MEASLES, MUMPS, RUBELLA VACCINE 0.5 ML VIAL SQ ONE (16:00)
[2018-01-08] MEDS: IBUPROFEN 800 MG TAB PO PRN (16:27)
[2018-01-08] MEDS: oxyCODONE/ACETAMINOPHEN 5 MG/325 MG TAB PO PRN ×3 (16:28→22:21)
[2018-01-08] MEDS ORDERED: SODIUM CHLORIDE 0.9% FLUSH 10 ML FLUSH IV FLUSH SCH (21:00)
[2018-01-08] MEDS: DOCUSATE SODIUM 50 MG/SENNA 8.6 MG TAB PO PRN (22:20)
[2018-01-09] MEDS: oxyCODONE/ACETAMINOPHEN 5 MG/325 MG TAB PO PRN ×5 (02:48→21:59)
[2018-01-09] MEDS: IBUPROFEN 800 MG TAB PO PRN ×3 (02:49→21:59)
--- NOTE | 2018-01-09 08:51 | HHI.OB ---
Subjective Post Day: 1 Objective Vitals/I&O 96/54 R 21 P 75 T.97.9 Objective Remarks GENERAL: Well-nourished, well-developed patient. CARDIOVASCULAR: Regular rate and rhythm without murmurs, gallops, or rubs. RESPIRATORY: Breath sounds equal bilaterally. No accessory muscle use. ABDOMEN/GI: Abdomen soft, non-tender. Fundus: Firm, non-tender at umbilicus. GENITOURINARY: Light to moderate bleeding. EXTREMITIES: No cyanosis, slight lower extremity edema, non-tender, without signs of DVT. Medications and IVs Current Medications Medications (Trade) Dose Ordered Sig/Booker Route Start Time Stop Time Status Last Admin (NS Flush) 2 ml BID IV FLUSH 01/08/18 21:00 (NS Flush) 2 ml UNSCH PRN IV FLUSH 01/08/18 10:45 (Tylenol) 650 mg Q4H PRN PO 01/08/18 10:45 (Motrin) 800 mg Q8H PRN PO 01/08/18 10:45 01/09/18 02:49 (Percocet 5-325 Mg) 1 tab Q4H PRN PO 01/08/18 10:45 01/08/18 17:54 (Percocet 5-325 Mg) 2 tab Q4H PRN PO 01/08/18 10:45 01/09/18 06:37 (Americaine 20% Top Spr) 1 spray Q4H PRN TOPICAL 01/08/18 10:45 01/08/18 22:21 (Tucks Pads) 1 applic QID PRN TOPICAL 01/08/18 10:45 01/08/18 22:20 (Kasey-Colace) 2 tab Q12H PRN PO 01/08/18 10:45 01/08/18 22:20 (Ambien) 5 mg HS PRN PO 01/08/18 10:45 (Mag-Al Plus Susp Liq) 15 ml Q8H PRN PO 01/08/18 10:45 (Zofran Odt) 4 mg Q6H PRN PO 01/08/18 10:45 Assessment/Plan Problem List: (1) Normal vaginal delivery ICD Codes: O80 - Encounter for full-term uncomplicated delivery Assessment and Plan pt doing well c/o lower back pain pain well managed with oral pain medication and bonding with routine care Discharge Planning consider dc tomorrow Sandra Crockett Jan 09, 2018 08:51
[2018-01-09] MEDS ORDERED: IBUP1TAB7 PO (13:01)
[2018-01-09] MEDS ORDERED: OXYC1TAB63 PO (13:01)
[2018-01-09] MEDS: DOCUSATE SODIUM 50 MG/SENNA 8.6 MG TAB PO PRN (13:25)
[2018-01-09 20:43] VITALS: BP 95/63; PULSE 70; RESP 18; TEMP 98.6
[2018-01-10] MEDS: DOCUSATE SODIUM 50 MG/SENNA 8.6 MG TAB PO PRN (02:57)
[2018-01-10] MEDS: oxyCODONE/ACETAMINOPHEN 5 MG/325 MG TAB PO PRN ×3 (02:58→11:18)
[2018-01-10] MEDS: IBUPROFEN 800 MG TAB PO PRN (06:27)
--- NOTE | 2018-01-10 09:12 | HHI.OB ---
Subjective Post Day: 2 Objective Vitals/I&O Vital Signs Date Time Temp Pulse Resp B/P (MAP) Pulse Ox O2 Delivery O2 Flow Rate FiO2 01/09/18 20:43 98.6 70 18 95/63 (74) Objective Remarks GENERAL: Well-nourished, well-developed patient. CARDIOVASCULAR: Regular rate and rhythm without murmurs, gallops, or rubs. RESPIRATORY: Breath sounds equal bilaterally. No accessory muscle use. ABDOMEN/GI: Abdomen soft, non-tender. Fundus: Firm, non-tender at umbilicus. GENITOURINARY: Light to moderate bleeding. EXTREMITIES: No cyanosis, mild lower extremity edema, non-tender, without signs of DVT. Medications and IVs Current Medications Medications (Trade) Dose Ordered Sig/Booker Route Start Time Stop Time Status Last Admin (NS Flush) 2 ml BID IV FLUSH 01/08/18 21:00 (NS Flush) 2 ml UNSCH PRN IV FLUSH 01/08/18 10:45 (Tylenol) 650 mg Q4H PRN PO 01/08/18 10:45 (Motrin) 800 mg Q8H PRN PO 01/08/18 10:45 01/10/18 06:27 (Percocet 5-325 Mg) 1 tab Q4H PRN PO 01/08/18 10:45 01/08/18 17:54 (Percocet 5-325 Mg) 2 tab Q4H PRN PO 01/08/18 10:45 01/10/18 07:37 (Americaine 20% Top Spr) 1 spray Q4H PRN TOPICAL 01/08/18 10:45 01/08/18 22:21 (Tucks Pads) 1 applic QID PRN TOPICAL 01/08/18 10:45 01/08/18 22:20 (Kasey-Colace) 2 tab Q12H PRN PO 01/08/18 10:45 01/10/18 02:57 (Ambien) 5 mg HS PRN PO 01/08/18 10:45 (Mag-Al Plus Susp Liq) 15 ml Q8H PRN PO 01/08/18 10:45 (Zofran Odt) 4 mg Q6H PRN PO 01/08/18 10:45 Assessment/Plan Problem List: (1) Normal vaginal delivery ICD Codes: O80 - Encounter for full-term uncomplicated delivery Assessment and Plan pt doing well c/o lower back pain, appears to be muscular it is tender to the touch, ice pack helped pain well managed with oral pain medication and bonding with infant pt concerned about mild swelling to lower extremities, encourage fluid intake and walking more once she is home routine care Discharge Planning dc home today Sandra Crockett Jan 10, 2018 09:12
--- NOTE | 2018-01-10 09:14 | HHI.DCPOC ---
Discharge Care Plan Your Health Problems Are: Vaginal delivery Report Symptoms to Your Doctor -Temperature above 100.5 degrees -Redness, of incision or excessive or foul smelling drainage -Unusual pain or calf pain -Increased vaginal bleeding -Painful or difficulty urinating -Feelings of extreme sadness or anxiety after 2 weeks Goals to Promote Your Health * To prevent worsening of your condition and complications * To maintain your health at the optimal level Directions to Meet Your Goals Take your medications as prescribed Follow your dietary instruction Follow activity as directed Ensure plenty of rest for recovery Drink fluids for hydration Keep your appointments as scheduled Take your immunizations and boosters as scheduled If your symptoms worsen call your PCP, if no PCP go to Urgent Care Center or Emergency Room Smoking is Dangerous to Your Health. Avoid second hand smoke Call the 24-hour crisis hotline for domestic abuse at Sandra Crockett Jan 10, 2018 09:14
--- NOTE | 2018-01-10 09:15 | HHI.DS ---
Admission Date Jan 07, 2018 at 21:38 Discharge Date: Jan 10, 2018 Admitting Diagnosis term labor Diagnosis: (1) Normal vaginal delivery Diagnosis: Principal ICD Codes: O80 - Encounter for full-term uncomplicated delivery Delivery Date: Jan 08, 2018 Vaginal Delivery: Normal : Female Brief History Patient is 22-year-old white female at [address] Pelayo for care presents complaining of contraction pain, no bleeding, no leakage NST is reactive and she is estella regularly Hospital Course routine care Pt Condition on Discharge: Good Discharge Disposition: Discharge Home Discharge Instructions Diet Instructions: As Tolerated, No Restrictions Additional Diet Instructions: Drink at least 8 - 16 oz bottles of water a day Activities You Can Perform: Shower Only-No Bath, Sitz Bath Activities to Avoid: Lifting/Bending, Sexual Activity Additional Activity Instruc.: No driving until off pain medications Do not lift anything heavier than your baby in an infant carrier Follow up 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 @ [facility] [place] New Medications: Ibuprofen (Ibuprofen) 800 Mg Tab 800 MG PO Q8H PRN for CRAMPING, #30 TAB Oxycodone HCl/Acetaminophen (Oxycodone-Acetaminophen 5-325) 5 Mg-325 Mg Tablet 1 TAB PO Q4H PRN for moderate pain, #20 TAB Continued Medications: Cyclobenzaprine Hcl (Flexeril) 10 Mg Tab 10 MG PO TID PRN for MUSCLE SPASM, #30 TAB Montelukast Sodium (Singulair) 10 Mg Tab 10 MG PO HS, TAB Vit W/ Ferrous Fumara ( Vitamin 27-0.8 mg) 27 Mg Iron-800 Mcg Tab Discontinued Medications: Clonazepam (Clonazepam) 0.5 Mg Tab 0.25 MG PO DAILY, TAB Ibuprofen (Motrin 800 Mg Tab) 800 Mg Tab 800 MG PO Q8HR PRN for PAIN SCALE 1 TO 10 for 14 Days, TAB Miscellaneous ( Control Pills) Tab 1 TAB PO DAILY, TAB Pantoprazole (Protonix) 40 Mg Tab 40 MG PO DAILY for Reflux, #30 TAB 0 Refills Valacyclovir (Valtrex) 500 Mg Tab 500 MG PO DAILY for Mgmt Viral Infection, #30 TAB 0 Refills Sandra Crockett Jan 10, 2018 09:15
== END 2018-01-10 12:20 | disposition home or self-care (01) | DRG 775 ==
LOC: HOBED 21:14 → H2EB 21:38 → H1EA 01-08 13:34
PROVIDERS: ADMIT Obstetrics & Gynecology; ATTEND Obstetrics & Gynecology
PROC: 00HU33Z Insertion of Infusion Device into Spinal Canal, Percutaneous Approach (ICD-10-PCS; 2018-01-07)
PROC: 3E0R3BZ Introduction of Anesthetic Agent into Spinal Canal, Percutaneous Approach (ICD-10-PCS; 2018-01-07)
PROC: 10E0XZZ Delivery of Products of Conception, External Approach (ICD-10-PCS; principal; 2018-01-08)
PROC: 10907ZC Drainage of Amniotic Fluid, Therapeutic from Products of Conception, Via Natural or Artificial Opening (ICD-10-PCS; 2018-01-08)
PROC: 0HQ9XZZ Repair Perineum Skin, External Approach (ICD-10-PCS; 2018-01-08)
DX: O70.0 First degree perineal laceration during delivery (principal); Z37.0 Single live birth; Z3A.40 40 weeks gestation of pregnancy; Z23 Encounter for immunization
CPT/HCPCS: 59025; 80307; 81001; 85007; 85027; 86850; 86900; 86901; 90715; G0481; J2270; J2590; J7120

== ENCOUNTER 2018-01-13 15:10 | Emergency (ER) | payer BC ==
[~2018-01-13] VITALS: Ht 167.6 cm; Wt 75.0 kg
[~2018-01-13 15:10] MED LIST changes: -CLON0.5T PO; +IBUP1TAB7 PO; -IBUP800 PO; +OXYC1TAB63 PO; +PREN1TAB30; -Z.0.BCPILL PO
[2018-01-13 15:15] VITALS: BP 136/60; PULSE 86; RESP 18; TEMP 99; O2SAT 99
[2018-01-13] MEDS ORDERED: SODIUM CHLOR 0.9% 1000 ML INJ 1,000 ML IV SCH (16:52)
--- NOTE | 2018-01-13 16:59 | PD ---
HPI Chief Complaint: Abdominal Pain Time Seen by Provider: 16:36 Travel History International Travel<30 days: No Contact w/Intl Traveler<30days: No Traveled to known affect area: No History of Present Illness HPI The patient is a 22-year-old female who is a , delivered last Monday vaginally at 40 weeks and 1 day by her teamsite developer, Dr. Pelayo. The patient was discharged home on Percocet and has been taken Percocet until she ran out of pain medications yesterday. The patient then developed lower abdominal pelvic pain that radiates to the back. The patient complains of pain over the tailbone as well as decreased bowel movements and no she has not had a bowel movement in several days. She does note a small amount of vaginal bleeding without any discharge. The patient denies any nausea or vomiting. Symptoms are moderate. She denies any dysuria, frequency, or urgency. The patient states she did not need an episiotomy during the vaginal delivery, however, they did place a few sutures after the delivery. The patient states that Dr. Pelayo delivered the placenta and she does not believe there are any retained products of conception. The patient denies any current fever, chills, or sweats. PFSH Past Medical History Blood Disorders: No Anxiety: Yes Cancer: No Cardiovascular Problems: Yes (recently diagnosed "juvenile t-wave") Diminished Hearing: No Endocrine: No Gastrointestinal Disorders: Yes (reflux, hemorrhoids) Genitourinary: No Implanted Vascular Access Dvce: Yes Musculoskeletal: No Neurologic: No Reproductive: No Respiratory: Yes (SEASONAL ALLERGIES) Immunizations Current: Yes ?: Not : 1 Para: 1 Past Surgical History Body Medical Devices: dental implants Tonsillectomy: Yes (2008) Other Surgery: Yes (LIP AUGMENTATION, breast augmentation) Social History Alcohol Use: No Tobacco Use: No Substance Use: No Allergies-Medications (Allergen,Severity, Reaction): Coded Allergies: levofloxacin (Unverified Allergy, Severe, DIZZINESS, 03/14/17) amoxicillin (Unverified Allergy, Mild, HIVES, 03/14/17) clavulanic acid (Unverified Allergy, Mild, HIVES, 03/14/17) cefprozil (Unverified Allergy, Unknown, 03/14/17) Reported Meds & Prescriptions Reported Meds & Active Scripts Active Oxycodone-Acetaminophen 5-325 (Oxycodone HCl/Acetaminophen) 5 Mg-325 Mg Tablet 1 Tab PO Q4H PRN Ibuprofen 800 Mg Tab 800 Mg PO Q8H PRN Reported Vitamin 27-0.8 mg ( Vit W/ Ferrous Fumara) 27 Mg Iron-800 Mcg Tab Review of Systems Except as stated in HPI: all other systems reviewed are Neg General / Constitutional: No: Fever Cardiovascular: No: Chest Pain or Discomfort Respiratory: No: Shortness of Breath Gastrointestinal: Positive: Abdominal Pain, Constipation, No: Nausea, Vomiting , Diarrhea Genitourinary: Positive: Pelvic Pain, Vaginal Bleeding, No: Urgency, Frequency , Dysuria, Discharge Physical Exam Narrative GENERAL: Awake, alert, pleasant 22-year-old female who appears her stated age and is in no acute respiratory distress. SKIN: Focused skin assessment warm/dry. HEAD: Atraumatic. Normocephalic. EYES: No injection or drainage. ENT: No nasal bleeding or discharge. Mucous membranes pink and moist. NECK: Trachea midline. No JVD. CARDIOVASCULAR: Regular rate and rhythm. No murmur appreciated. RESPIRATORY: No accessory muscle use. Clear to auscultation. Breath sounds equal bilaterally. GASTROINTESTINAL: Abdomen soft, uterus enlarged inferior to the umbilicus. Genitourinary: External examination reveals a small amount of blood at the introitus. Speculum examination was not performed. Rectal: No visible hemorrhoid. Small amount of stool on digital exam that is hard but no fecal impaction noted. MUSCULOSKELETAL: No obvious deformities. No clubbing. No cyanosis. No edema. NEUROLOGICAL: Awake and alert. No obvious cranial nerve deficits. Motor grossly within normal limits. Normal speech. PSYCHIATRIC: Appropriate mood and affect; insight and judgment normal. Data Data Last Documented VS Vital Signs Date Time Temp Pulse Resp B/P (MAP) Pulse Ox O2 Delivery O2 Flow Rate FiO2 01/13/18 15:15 99.0 86 18 136/60 (85) 99 Orders Orders Complete Blood Count With Diff (01/13/18 16:52) Comprehensive Metabolic Panel (01/13/18 16:52) Urinalysis - C+S If Indicated (01/13/18 16:52) Iv Access Insert/Monitor (01/13/18 16:52) Ecg Monitoring (01/13/18 16:52) Oximetry (01/13/18 16:52) Sodium Chlor 0.9% 1000 Ml Inj (Ns 1000 M (01/13/18 16:52) Sodium Chloride 0.9% Flush (Ns Flush) (01/13/18 17:00) Abdomen, Upright Only (01/13/18 16:52) Ketorolac Inj (Toradol Inj) (01/13/18 17:00) Ondansetron Odt (Zofran Odt) (01/13/18 17:00) Urine Culture (01/13/18 17:05) Labs Laboratory Tests Test 01/13/18 17:05 01/13/18 17:10 Urine Color YELLOW Urine Turbidity CLOUDY Urine pH 7.0 Urine Specific Aristes 1.021 Urine Protein 30 mg/dL Urine Glucose (UA) NEG mg/dL Urine Ketones NEG mg/dL Urine Occult Blood MOD Urine Nitrite NEG Urine Bilirubin NEG Urine Urobilinogen LESS THAN 2 mg/dL Urine Leukocyte Esterase MOD Urine RBC 156 /hpf Urine WBC 56 /hpf Urine WBC Clumps FEW Urine Squamous Epithelial Cells <1 /hpf Urine Mucus FEW /lpf Microscopic Urinalysis Comment CULTURE INDICATED White Blood Count 8.2 TH/MM3 Red Blood Count 4.13 MIL/MM3 Hemoglobin 11.8 GM/DL Hematocrit 34.3 % Mean Corpuscular Volume 83.1 FL Mean Corpuscular Hemoglobin 28.5 PG Mean Corpuscular Hemoglobin Concent 34.4 % Red Cell Distribution Width 15.8 % Platelet Count 179 TH/MM3 Mean Platelet Volume 9.8 FL Neutrophils (%) (Auto) 69.6 % Lymphocytes (%) (Auto) 21.8 % Monocytes (%) (Auto) 6.7 % Eosinophils (%) (Auto) 1.5 % Basophils (%) (Auto) 0.4 % Neutrophils # (Auto) 5.7 TH/MM3 Lymphocytes # (Auto) 1.8 TH/MM3 Monocytes # (Auto) 0.5 TH/MM3 Eosinophils # (Auto) 0.1 TH/MM3 Basophils # (Auto) 0.0 TH/MM3 CBC Comment DIFF FINAL Differential Comment Blood Urea Nitrogen 15 MG/DL Creatinine 0.70 MG/DL Random Glucose 88 MG/DL Total Protein 6.4 GM/DL Albumin 2.7 GM/DL Calcium Level 8.5 MG/DL Alkaline Phosphatase 94 U/L Aspartate Amino Transf (AST/SGOT) 46 U/L Alanine Aminotransferase (ALT/SGPT) 52 U/L Total Bilirubin 0.5 MG/DL Sodium Level 143 MEQ/L Potassium Level 3.7 MEQ/L Chloride Level 108 MEQ/L Carbon Dioxide Level 27.8 MEQ/L Anion Gap 7 MEQ/L Estimat Glomerular Filtration Rate 103 ML/MIN MDM Medical Decision Making Medical Screen Exam Complete: Yes Emergency Medical Condition: Yes Medical Record Reviewed: Yes Interpretation(s) Last Impressions Abdomen X-Ray 01/13/18 6752 Signed Impressions: CONCLUSION: Constipation. No acute findings. Laboratory Tests Test 01/13/18 17:05 01/13/18 17:10 Urine Color YELLOW Urine Turbidity CLOUDY Urine pH 7.0 Urine Specific Aristes 1.021 Urine Protein 30 mg/dL Urine Glucose (UA) NEG mg/dL Urine Ketones NEG mg/dL Urine Occult Blood MOD Urine Nitrite NEG Urine Bilirubin NEG Urine Urobilinogen LESS THAN 2 mg/dL Urine Leukocyte Esterase MOD Urine RBC 156 /hpf Urine WBC 56 /hpf Urine WBC Clumps FEW Urine Squamous Epithelial Cells <1 /hpf Urine Mucus FEW /lpf Microscopic Urinalysis Comment CULTURE INDICATED White Blood Count 8.2 TH/MM3 Red Blood Count 4.13 MIL/MM3 Hemoglobin 11.8 GM/DL Hematocrit 34.3 % Mean Corpuscular Volume 83.1 FL Mean Corpuscular Hemoglobin 28.5 PG Mean Corpuscular Hemoglobin Concent 34.4 % Red Cell Distribution Width 15.8 % Platelet Count 179 TH/MM3 Mean Platelet Volume 9.8 FL Neutrophils (%) (Auto) 69.6 % Lymphocytes (%) (Auto) 21.8 % Monocytes (%) (Auto) 6.7 % Eosinophils (%) (Auto) 1.5 % Basophils (%) (Auto) 0.4 % Neutrophils # (Auto) 5.7 TH/MM3 Lymphocytes # (Auto) 1.8 TH/MM3 Monocytes # (Auto) 0.5 TH/MM3 Eosinophils # (Auto) 0.1 TH/MM3 Basophils # (Auto) 0.0 TH/MM3 CBC Comment DIFF FINAL Differential Comment Blood Urea Nitrogen 15 MG/DL Creatinine 0.70 MG/DL Random Glucose 88 MG/DL Total Protein 6.4 GM/DL Albumin 2.7 GM/DL Calcium Level 8.5 MG/DL Alkaline Phosphatase 94 U/L Aspartate Amino Transf (AST/SGOT) 46 U/L Alanine Aminotransferase (ALT/SGPT) 52 U/L Total Bilirubin 0.5 MG/DL Sodium Level 143 MEQ/L Potassium Level 3.7 MEQ/L Chloride Level 108 MEQ/L Carbon Dioxide Level 27.8 MEQ/L Anion Gap 7 MEQ/L Estimat Glomerular Filtration Rate 103 ML/MIN Differential Diagnosis Differential diagnosis includes fecal impaction, constipation, UTI, retained products of conception, post vaginal delivery pain. Narrative Course IV was established, labs are drawn and sent, the patient was placed on cardiac telemetry monitoring and continuous pulse oximetry monitoring. The patient was administered Toradol which is considered a plus in . Rectal exam was performed, no fecal impaction. UA was sent to lab. X-ray was performed to evaluate the amount of stool in the sigmoid and descending colon. The patient' s UA reveals 156 RBCs and 56 WBCs, therefore, patient will be placed on Bactrim which is generally considered safe in breast-feeding. The patient will also be sent home with magnesium citrate, is advised to drink plenty of fluids, to follow-up with her teamsite developer. I called Dr. Pelayo, however, is currently on vacation. The patient is advised to follow-up in his office. Return if symptoms worsen or progress. Diagnosis Primary Impression: Constipation Qualified Codes: K59.00 - Constipation, unspecified Additional Impression: UTI (urinary tract infection) Qualified Codes: N39.0 - Urinary tract infection, site not specified Patient Instructions: General Instructions Additional Instructions: Medications as directed. Plenty fluids to stay hydrated. Follow-up with your teamsite developer. Med/Other Pt SpecificInfo: Prescription(s) given Scripts Magnesium Citrate Liq (Magnesium Citrate Liq) 300 Ml Liq 300 ML PO ONCE, #1 BOTTLE 0 Refills Prov: Desmond Alcala MD 01/13/18 Sulfamethoxazole-Trimethoprim (Bactrim DS) 800-160 Mg Tab 1 TAB PO BID for Infection, #6 TAB 0 Refills Prov: Desmond Alcala MD 01/13/18 Disposition: 01 DISCHARGE HOME Condition: Stable Desmond Alcala MD Jan 13, 2018 16:59
[2018-01-13] MEDS ORDERED: SODIUM CHLORIDE 0.9% FLUSH 10 ML FLUSH IV FLUSH PRN (17:00)
[2018-01-13] MEDS ORDERED: KETOROLAC TROMETHAMINE 30 MG/ML (IVP) VIAL IVP ONE (17:00)
[2018-01-13] MEDS ORDERED: ONDANSETRON ODT 4 MG TAB PO ONE (17:00)
[2018-01-13 17:35] LABS: AUTOMATED NEUTROPHIL # 5.7 TH/MM3 (1.8-7.7); BASOPHIL % 0.4 % (0.0-2.0); EOSINOPHIL # 0.1 TH/MM3 (0-0.4); EOSINOPHIL % 1.5 % (0.0-4.0); HEMATOCRIT 34.3 % (35.0-46.0); HEMOGLOBIN 11.8 GM/DL (11.6-15.3); LYMPH % 21.8 % (9.0-44.0); LYMPHOCYTE # 1.8 TH/MM3 (1.0-4.8); MEAN CELL VOLUME 83.1 FL (80.0-100.0); MEAN CORPUSCULAR HEMOGLOBIN 28.5 PG (27.0-34.0); MEAN CORPUSCULAR HGB CONC 34.4 % (32.0-36.0); MEAN PLATELET VOLUME 9.8 FL (7.0-11.0); MONO % 6.7 % (0.0-8.0); MONOCYTE # 0.5 TH/MM3 (0-0.9); NEUT % 69.6 % (16.0-70.0); PLATELET COUNT 179 TH/MM3 (150-450); RED BLOOD COUNT 4.13 MIL/MM3 (4.00-5.30); RED CELL DISTRIBUTION WIDTH 15.8 % (11.6-17.2); WHITE BLOOD COUNT 8.2 TH/MM3 (4.0-11.0)
[2018-01-13 17:41] LABS: BILIRUBIN, URINE NEG (NEG); BLOOD, URINE MOD (NEG); GLUCOSE,URINE NEG (NEG); KETONE, URINE NEG (NEG); MUCUS URINE FEW /lpf (OCC); NITRITE,URINE NEG (NEG); SQUAMOUS EPITHELIAL CELL URINE <1 /hpf (0-5); URINE COLOR YELLOW (YELLW/STRAW); URINE LEUKOCYTE ESTERASE MOD (NEG); WHITE BLOOD CELL CLUMPS FEW
--- NOTE | 2018-01-13 17:41 | RADRPT ---
EXAM DATE: 01/13/2018 5:14 PM EDT AGE/SEX: 22 years / Female INDICATIONS: Pain. CLINICAL DATA: This is the patient's initial encounter. Patient reports that signs and symptoms have been present for 3 days and indicates a pain score of 6/10. MEDICAL/SURGICAL HISTORY: . Natural on 01-08-18 None. COMPARISON: No prior exams available for comparison. FINDINGS: A single erect view of the abdomen demonstrates the lower lungs to be clear. No evidence of free intr aperitoneal gas. The visualized bowel loops are unremarkable. CONCLUSION: Constipation. No acute findings. Electronically signed by: Tony Moody MD 01/13/2018 5:39 PM EDT
[2018-01-13 18:07] LABS: ALBUMIN 2.7 GM/DL (3.4-5.0); ALT (GPT) 52 U/L (10-53); AST (GOT) 46 U/L (15-37); BICARBONATE 27.8 MEQ/L (21.0-32.0); BLOOD UREA NITROGEN 15 MG/DL (7-18); CALCIUM 8.5 MG/DL (8.5-10.1); CHLORIDE 108 MEQ/L (98-107); GLOMERULAR FILTRATION RATE 103 ML/MIN (>89); GLUCOSE,RANDOM 88 MG/DL (74-106); SODIUM (NA) 143 MEQ/L (136-145)
[2018-01-13 18:09] LABS: ALKALINE PHOSPHATASE 94 U/L (45-117); TOTAL BILIRUBIN ADULT 0.5 MG/DL (0.2-1.0); TOTAL PROTEIN 6.4 GM/DL (6.4-8.2)
[2018-01-13] MEDS ORDERED: MAGNSOL2 PO (18:20)
[2018-01-13] MEDS ORDERED: BACT800T5 PO (18:20)
== END 2018-01-13 18:57 | disposition home or self-care (01) ==
LOC: NEPC 15:10
DX: K59.00 Constipation, unspecified (principal); N39.0 Urinary tract infection, site not specified; F41.9 Anxiety disorder, unspecified; K21.9 Gastro-esophageal reflux disease without esophagitis; Z88.0 Allergy status to penicillin; Z88.8 Allergy status to other drugs, medicaments and biological substances
CPT/HCPCS: 74018; 80053; 81001; 85025; 87086; 96361; 96374; 99284; J1885; J7030